=== PATIENT | male | born 2005 | race African-American/Black ===

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

== ENCOUNTER 2024-02-10 15:37 | Emergency (ER) | payer OTHER, SELFPAY ==
[2024-02-10 16:58] VITALS: BP 113/57; PULSE 62; RESP 20; TEMP 37.2; O2SAT 100; BMI 24.4
--- NOTE | 2024-02-10 19:05 | ED_ITS ---
HPI - Eye Problem General Chief complaint: Eye Problems Stated complaint: rt eye scratched Related Data Previous Rx's ?Medication ?Instructions ?Recorded erythromycin 5 mg/gram (0.5 %) eye 1 appl ophthalmic (eye) BID #3.5 11/23/23 ointment grams Allergies Allergy/AdvReac Type Severity Reaction Status Date / Time fish derived [fish] Allergy Anaphylaxis Verified 02/10/24 17:00 [facility] Social History Social History Advance Directives: No Advance Directives Information Provided: No Physical Exam Vital Signs: Vital Signs: Last Vital Signs Temp 99 F 02/10/24 16:58 Pulse 62 02/10/24 16:58 Resp 20 02/10/24 16:58 BP 113/57 L 02/10/24 16:58 Pulse Ox 100 02/10/24 16:58 O2 Del Method Room Air 02/10/24 16:58 BMI result Body Mass Index 24.4 Course Course Course Narrative: This is an RME: Additional HPI, ROS, PE not included below will be deferred to primary provider. RME assessment and note performed by: Miley Sands PA-C This is a 18-year-old male who presents emergency department with complaints of right eye pain. Patient states that while he was playing basketball, a another person scratched him in his right eye. Reports that he has had eye pain, eye redness and tearing since. He reports blurred vision. Right conjunctiva is injected, no obvious global rupture. Plan: Thorough eye exam required to rule out any acute process Reevaluation(s) Reevaluation #1: Patient left without completing treatment. Discharge Plan Discharge Clinical Impression: Irritation of right eye Patient Disposition: Left W/O Completing Treatment Prescriptions: No Action erythromycin 5 mg/gram (0.5 %) ointment 1 appl ophthalmic (eye) BID Qty: 3.5 0RF Discharge Date/Time: 02/10/24 20:35
== END 2024-02-10 20:35 | disposition left against medical advice (07) ==
PROVIDERS: Emergency Provider Internal Medicine
DX: H57.89 Other specified disorders of eye and adnexa (principal); H57.11 Ocular pain, right eye; Z53.21 Procedure and treatment not carried out due to patient leaving prior to being seen by health care provider
CPT/HCPCS: 99281